=== PATIENT | male | born 1955 | race Caucasian/White ===

== ENCOUNTER 2016-07-12 11:49 | Emergency (ER) | payer MEDICARE, OTHER ==
[~2016-07-12] VITALS: Ht 177.8 cm; Wt 102.3 kg
[~2016-07-12 11:49] MED LIST: ALBUTEROL0.09 MG/A1 IH; ALLEGRA60 MG PO; ALOPHEN5 MG PO; AMBIEN 5MG TABLE5 MG PO; ARICEPT10 MG PO; ARICEPT5 MG PO; ASTELIN NASAL S34 ML; ASTELIN NASAL S34 ML NS; ASTELIN137 MCG/AC NS; AYR SALINE MIST50 ML NS; BUDEPRION XL PO; CALCIUM CITRAT200 MG PO; CELEXA 20MG20 MG/TAB PO; CEPHALEXIN500 M1 PO; CETIRIZINE PO; CHOLESTYRAMINE1 POW PO; CIPRO; CIPRO 500MG TA500 MG PO; CITALOPRAM10 MG PO; CITALOPRAM20 MG PO; COMBIVENT INH14.7 GM IH; CYANOCOBAL1000 MCG/1 IM; DESYREL 50MG50 MG PO; DOXYCYCLINE 10100 MG PO; FLONASE NASAL S16 GM; FLONASE0.05 MG/AC NS; FLOVENT DI50 MCG/Act IH; GABAPENTIN TAB600 MG PO; HARVONI; INDERAL LA 80MG80 MG PO; INDERAL80 MG PO; KETOROLAC10 MG PO; LAMICTAL PO; LAMICTAL200 MG PO; LAMOTRIGINE; LEVAQUIN 5500 MG/TAB PO; LEXAPRO20 MG PO; LIDODERM 5% PATC1 EA TP; LORTAB 5/500 501 TAB PO; MULTIPLE VITAMI1 TA4 PO; MVI PO; MYSOLINE PO; MYSOLINE250 MG PO; NAMENDA 10MG TA10 MG PO; NAMENDA10 MG PO; NAPROXEN 3375 MG/TAB PO; NEURONTIN600 MG/TAB PO; NEXIUM PO; NORCO 325 MG-51 TAB PO; NORCO 325 MG-7.1 TAB PO; NUTRAVESCENT1000 MG PO; OMEGA-31000 MG PO; PERCOCET 325 MG1 TA3 PO; PREDNISONE20 MG PO; PREVACID 30MG30 MG PO; PRIL40 PO; PRILOSEC 20MG20 MG; PRILOSEC 20MG20 MG PO; PRO AIR HFA IH; PROPRANOLOL60 MG PO; PROVENTIL0.09 MG/A1 IH; PROZAC40 MG PO; QUESTRAN4 GM/9 GM PO; SEREVENT IH; SEROQUEL200 MG PO; SONATA 10MG10 MG PO; SONATA5 MG PO; STOOL SOFTENER100 MG PO; TOPAMAX 100MG100 M1 PO; VENOFER; VENOFER20 MG/ML IV; VENTOLIN0.09 MG IH; VICODIN 5/5001 UDTAB PO; VITAMIN C BUFF500 MG PO; VITAMIN C500 MG PO; VITAMIN D; WELLBUTRIN 100100 MG PO; WELLBUTRIN PO; WELLBUTRIN XL300 MG PO; ZOFRAN4 M1 PO; [UNRECOGNIZED DRUG - OTHER]; [UNRECOGNIZED DRUG - OTHER] PO
[2016-07-12 11:55] VITALS: BP 116/70; PULSE 48; TEMP 98.6
== END 2016-07-12 12:38 | disposition home or self-care (01) ==
LOC: COL.ER 11:49
DX: S61.217A Laceration without foreign body of left little finger without damage to nail, initial encounter (principal); W27.8XXA Contact with other nonpowered hand tool, initial encounter; Y92.009 Unspecified place in unspecified non-institutional (private) residence as the place of occurrence of the external cause

== ENCOUNTER 2016-07-21 11:00 | Outpatient (RCR) | payer MEDICARE, OTHER ==
[2016-07-08 10:55] VITALS: BP 168/90; PULSE 55; TEMP 98.1
[2016-07-12 11:02] VITALS: BP 110/92; PULSE 79; TEMP 97.8
[2016-07-18 11:10] VITALS: BP 117/76; PULSE 56; TEMP 98.4
[~2016-07-21] VITALS: Ht 180.3 cm; Wt 102.3 kg
[2016-07-21 11:04] VITALS: BP 151/83; PULSE 55; TEMP 97.8
== END 2016-07-21 13:32 | disposition home or self-care (01) ==
LOC: EUO 11:00
DX: E61.1 Iron deficiency (principal)
CPT/HCPCS: J2916

== ENCOUNTER → 2017-07-04 | Outpatient (CLI) | payer MEDICARE, OTHER ==
[~2017-07-04] MED LIST changes: +BENTYL 10MG10 MG/CAP PO
== END ==
LOC: MHCPAIN 08:03
DX: G89.29 Other chronic pain (principal); M47.22 Other spondylosis with radiculopathy, cervical region; M54.81 Occipital neuralgia; Z87.891 Personal history of nicotine dependence
CPT/HCPCS: G0463

== ENCOUNTER → 2017-07-20 | Outpatient (CLI) | payer MEDICARE, OTHER | LOC: MHCPAIN 08:39 | DX: M50.31 Other cervical disc degeneration, high cervical region (principal) | CPT/HCPCS: J1100; J2250; J3010; Q9967 ==

== ENCOUNTER → 2017-08-01 | Outpatient (CLI) | payer MEDICARE, OTHER | LOC: MHCPAIN 09:22 | DX: G89.29 Other chronic pain (principal); M50.90 Cervical disc disorder, unspecified, unspecified cervical region; M54.12 Radiculopathy, cervical region; M54.81 Occipital neuralgia; R51 Headache | CPT/HCPCS: G0463 ==

== ENCOUNTER → 2017-10-04 | Outpatient (CLI) | payer MEDICARE | LOC: MHCPAIN 10:44 | DX: G89.29 Other chronic pain (principal); M50.90 Cervical disc disorder, unspecified, unspecified cervical region; M54.12 Radiculopathy, cervical region; M54.81 Occipital neuralgia; R51 Headache | CPT/HCPCS: G0463 ==

== ENCOUNTER → 2017-12-13 | Outpatient (CLI) | payer MEDICARE | LOC: MHCPAIN 07:57 | DX: G89.29 Other chronic pain (principal); M50.90 Cervical disc disorder, unspecified, unspecified cervical region; M54.12 Radiculopathy, cervical region; M54.81 Occipital neuralgia; R51 Headache | CPT/HCPCS: G0463 ==

== ENCOUNTER 2018-02-04 10:37 | Emergency (ER) | payer MEDICARE ==
[~2018-02-04] VITALS: Ht 177.8 cm; Wt 95.5 kg
[2018-02-04 10:40] VITALS: TEMP 98.4
[2018-02-04 11:13] LABS: COLLECTION METHOD CLEAN CATCH
[2018-02-04 11:16] LABS: BASO # 0.1 (0.0-0.2); BASO % 0.9 % (0.0-2.0); EOS # 0.1 (0.0-0.7); EOS % 1.3 % (0-4.0); GRAN # 4.7 (1.4-6.5); GRAN % 60.1 % (42.2-75.2); LYMPH # 2.3 (1.2-3.4); LYMPH % 29.8 % (20.0-51.0); MEAN CELL VOLUME 94 fl (80.0-100.0); MEAN CORPUSCULAR HEMOGLOBIN 31 pg (27.0-31.0); MEAN CORPUSCULAR HGB CONC 33 g/dl (33.0-37.0); MEAN PLATELET VOLUME 11.1 fl (7.4-10.4); MONO # 0.6 (0.1-0.6); MONO % 7.6 % (1.7-9.3); PLATELET COUNT 154 K/mm3 (130-400); RED BLOOD COUNT 4.79 M/mm3 (4.20-5.60)
[2018-02-04 11:20] LABS: MUCOUS Present /lpf; PH 6 (5-8); SQUAMOUS EPITHELIAL 0-2 /hpf; URINE APPEARANCE Clear; URINE BACTERIA None Seen /hpf; URINE BILIRUBIN Negative (NEGATIVE); URINE BLOOD Negative (NEGATIVE); URINE COLOR Yellow; URINE GLUCOSE Negative (NEGATIVE); URINE KETONE Negative (NEGATIVE); URINE LEUKOCYTE ESTERASE Negative (NEGATIVE); URINE NITRATE Negative (NEGATIVE); URINE PROTEIN(semi-quant) Negative (NEGATIVE); URINE RBC 0-2 /hpf; URINE UROBILINOGEN Negative (NEGATIVE)
[2018-02-04 11:22] LABS: INR 1.1 (0.8-3.0); PROTHROMBIN TIME 12.7 SECONDS (9.7-12.8)
[2018-02-04 11:27] LABS: ALANINE AMINOTRANSFERASE 41 U/L (21-72); ALBUMIN 4.1 gm/dL (3.5-5.0); ALKALINE PHOSPHATASE 56 U/L (50-136); ANION GAP 6 mmol/L (7-16); AST,SGOT 33 U/L (15-37); BILIRUBIN,TOTAL 0.5 mg/dL (0.0-1.0); BLOOD UREA NITROGEN 15 mg/dL (9-20); CALCIUM 8.9 mg/dL (8.4-10.2); CARBON DIOXIDE 23 mmol/L (22-30); CHLORIDE 115 mmol/L (98-107); CREATINE KINASE 63 U/L (55-170); CREATININE, serum 1.25 mg/dL (0.66-1.25); GLUCOSE 84 mg/dL (74-106); POTASSIUM 3.6 mmol/L (3.4-5.0); SODIUM 144 mmol/L (137-145)
[2018-02-04 11:40] LABS: TROPONIN-I < 0.012 ng/mL (0.000-0.034)
[2018-02-04 14:02] VITALS: BP 162/80; PULSE 70
== END 2018-02-04 14:04 | disposition home or self-care (01) ==
LOC: COL.ER 10:37
PROVIDERS: Emergency Medicine
DX: R60.9 Edema, unspecified (principal); Z88.2 Allergy status to sulfonamides; Z98.84 Bariatric surgery status; Z90.49 Acquired absence of other specified parts of digestive tract
CPT/HCPCS: J7030

== ENCOUNTER → 2018-03-07 | Outpatient (CLI) | payer MEDICARE | LOC: MHCPAIN 08:49 | DX: G89.29 Other chronic pain (principal); M54.81 Occipital neuralgia; R51 Headache; M47.812 Spondylosis without myelopathy or radiculopathy, cervical region | CPT/HCPCS: G0463 ==

== ENCOUNTER 2018-07-15 13:17 | Observation (INO) | payer MEDICARE ==
[~2018-07-15] VITALS: Ht 177.8 cm; Wt 99.3 kg
[~2018-07-15 13:17] MED LIST changes: +LAMICTAL150 MG PO
[2018-07-15 13:45] LABS: COLLECTION METHOD CLEAN CATCH
[2018-07-15 13:49] LABS: BASO # 0.1 (0.0-0.2); BASO % 1.1 % (0.0-2.0); EOS # 0.1 (0.0-0.7); EOS % 2.2 % (0-4.0); GRAN # 3.7 (1.4-6.5); GRAN % 58.3 % (42.2-75.2); HEMATOCRIT 44.8 % (42.0-52.0); HEMOGLOBIN 14.6 g/dl (13.5-18.0); LYMPH # 1.9 (1.2-3.4); MEAN CELL VOLUME 98 fl (80.0-100.0); MEAN CORPUSCULAR HEMOGLOBIN 32 pg (27.0-31.0); MEAN CORPUSCULAR HGB CONC 33 g/dl (33.0-37.0); MEAN PLATELET VOLUME 10.7 fl (7.4-10.4); MONO # 0.5 (0.1-0.6); MONO % 8.1 % (1.7-9.3); PLATELET COUNT 140 K/mm3 (130-400); RED BLOOD COUNT 4.57 M/mm3 (4.20-5.60); REDCELL DISTRIBUTION WIDTH-CV 12.5 % (11.5-14.5)
[2018-07-15 13:53] LABS: PH 6 (5-8); SQUAMOUS EPITHELIAL None Seen /hpf; URINE APPEARANCE Clear; URINE BACTERIA None Seen /hpf; URINE BILIRUBIN Negative (NEGATIVE); URINE BLOOD Negative (NEGATIVE); URINE COLOR Straw; URINE GLUCOSE Negative (NEGATIVE); URINE KETONE Negative (NEGATIVE); URINE LEUKOCYTE ESTERASE Negative (NEGATIVE); URINE NITRATE Negative (NEGATIVE); URINE PROTEIN(semi-quant) Negative (NEGATIVE); URINE RBC 0-2 /hpf; URINE UROBILINOGEN Negative (NEGATIVE)
[2018-07-15 13:59] LABS: ALANINE AMINOTRANSFERASE 16 U/L (21-72); ALBUMIN 3.8 gm/dL (3.5-5.0); ALKALINE PHOSPHATASE 46 U/L (50-136); ANION GAP 9 mmol/L (7-16); AST,SGOT 24 U/L (15-37); BILIRUBIN,TOTAL 0.4 mg/dL (0.0-1.0); BLOOD UREA NITROGEN 8 mg/dL (9-20); CARBON DIOXIDE 31 mmol/L (22-30); CHLORIDE 104 mmol/L (98-107); GLUCOSE 93 mg/dL (74-106); MAGNESIUM 2.1 mg/dL (1.6-2.3); PHOSPHOROUS 3.5 mg/dL (2.5-4.5); POTASSIUM 3.9 mmol/L (3.4-5.0); SODIUM 144 mmol/L (137-145); TOTAL PROTEIN 6.7 gm/dL (6.4-8.2)
[2018-07-15 14:16] LABS: TROPONIN-I < 0.012 ng/mL (0.000-0.035)
[2018-07-15 18:08] VITALS: BP 134/76; PULSE 64; TEMP 97.8
[2018-07-15 19:59] VITALS: BP 142/71; PULSE 68; TEMP 97.6
[2018-07-15] MEDS ORDERED: NORCO 325 MG-51 TAB PO (20:06)
[2018-07-15] MEDS ORDERED: MOBIC 7.5MG7.5 MG PO (20:12)
[2018-07-15] MEDS ORDERED: NEURONTIN100 MG/CAP PO (20:12)
[2018-07-16] VITALS (7 sets, daily range): BP systolic 125–144; BP diastolic 65–85; PULSE 50–78; TEMP 97.7–98.2
--- NOTE | 2018-07-16 01:46 | NUR ---
Patient assessed around 2100. Reported pain to back, rated as an 8. Med rec completed with patient, and called MD to see if patient could get pain medication on board. MD ordered medications, did not want to give [place] due to patient's confusion earlier. Given Mobic and Gabapentin per orders. Patient has not had any furhter complaints of pain or discomfort. Patient has been having bradycardia, with heart rate dropping in the 40s. EKG completed per orders, showing sinus bradycardia. Alert and oriented x 4, and able to make needs known. LS CTA. Respirations even and unlabored. HRR. BSAx4. Resting in bed with eyes closed at this time. Call light is within reach.
--- NOTE | 2018-07-16 05:11 | NUR ---
Patient has not had any complaints of pain or discomfort since given scheduled medication around 2100. NS continues at 75 ml/hr to IV site in left hand. Site is without redness, warmth, swelling, and pain. Notified that he will get MRI and EEG, and voiced understanding. Patient has been in sinus bradycardia. HR had been dropping in the upper 40s. EKG was received per orders. Dr. Quintero changed HR parameters to call if less than 45. Resting in bed with eyes closed at this time. Call light is within reach.
--- NOTE | 2018-07-16 08:47 | NUR ---
Pt is awake and A/Ox4, sitting up in recliner. He states he is having 6/10 back pain which is chronic. He states a 6/10 is "normal" for him. IVF are infusing into left hand without difficulty. He is up as tolerated in room. Pt denies any other needs at this time. Will monitor.
--- NOTE | 2018-07-16 10:00 | NUR ---
Pt refused PRN ativan prior to MRI. He states he has had several MRI and CT scans and does not have any issues with claustrophobia.
--- NOTE | 2018-07-16 12:23 | NUR ---
Initial visit; Patient thanked [employer] for looking in on him and offering prayer and God's blessings.
--- NOTE | 2018-07-16 16:03 | NUR ---
Tele called regarding HR dropping below 50, ANABELLE Diego notified. She states she will pass along info to Dr. Grissom.
--- NOTE | 2018-07-16 16:04 | NUR ---
Pt reports 8/10 neck/back pain. Pt requested PRN norco for this and it was given.
--- NOTE | 2018-07-16 21:15 | NUR ---
Shift assessment complete. Patient in bed, awake. States, pain 5/10 in neck, chronic. Prn pain medication not due until 2244, pt ok with waiting. Will call if changes his mind. Prn medication given for sleep. Denies further needs at this time. Will continue to monitor.
[2018-07-17 03:30] VITALS: BP 123/71; PULSE 56; TEMP 98.1
--- NOTE | 2018-07-17 06:08 | NUR ---
Patient ambulating in room, steady. States, 4/10 chronic neck pain. Prn pain medication given, will continue to assess. Denies further needs.
--- NOTE | 2018-07-17 08:08 | NUR ---
Assessment completed, alert/oriented, vital signs stable, denies any concerns or events overnight, NO new neuro deficits noted, he does have tremors but these are baseline for him, reports visual changes have resolved, heart RRR, lungs CTA, MRI braing was negative from yesterday, labs pending from this mroning, patient denies other needs and is eating breakfast at [facility], hoping to be discharged home today
[2018-07-17 08:16] VITALS: BP 137/63; PULSE 66; TEMP 98.2
[2018-07-17 08:36] LABS: CHOLESTEROL RISK RATIO 4.4; CREATININE, serum 1.3 (0.66-1.25)
[2018-07-17] MEDS ORDERED: ASPIRIN 81M81 MG/TA2 PO (10:37)
[2018-07-17] MEDS ORDERED: PRINIVIL20 MG PO (10:39)
[2018-07-17] MEDS ORDERED: LIPITOR20 MG PO (10:58)
--- NOTE | 2018-07-17 12:09 | NUR ---
Discharge orders reviewed with the patient, instructed to have follow up labs in a week and to Follow up with PCP as we have scheduled, discussed new meds and med changes, scripts sent to [facility] pharmacy for him, instructed to drinkin plent of water and to eat a AHA diet, removed IV and tele, patient is ambulatory and leaving via [employer], I personally escorted him out the door
== END 2018-07-17 12:12 | disposition home or self-care (01) ==
LOC: COL.ER 13:17 → MEDICAL 15:31
PROVIDERS: Emergency Medicine; Physician Assistant; ADMIT Hospitalist
DX: G45.9 Transient cerebral ischemic attack, unspecified (principal); H53.8 Other visual disturbances; F32.9 Major depressive disorder, single episode, unspecified; K21.9 Gastro-esophageal reflux disease without esophagitis; I10 Essential (primary) hypertension; G25.0 Essential tremor; G89.29 Other chronic pain; Z90.49 Acquired absence of other specified parts of digestive tract; Z87.891 Personal history of nicotine dependence; Z88.2 Allergy status to sulfonamides; Z88.1 Allergy status to other antibiotic agents; M19.90 Unspecified osteoarthritis, unspecified site; Z79.82 Long term (current) use of aspirin
CPT/HCPCS: A9585; G0378; J0360; J1644; J2060; J7030

== ENCOUNTER 2020-02-08 10:06 | Emergency (ER) | payer MEDICARE ==
[~2020-02-08] VITALS: Ht 177.8 cm; Wt 111.4 kg
[~2020-02-08 10:06] MED LIST changes: +ASPIRIN 81M81 MG/TA2 PO; +LIPITOR20 MG PO; +MOBIC 7.5MG7.5 MG PO; +NEURONTIN100 MG/CAP PO; +PRINIVIL20 MG PO
[2020-02-08 10:12] VITALS: TEMP 97.1
[2020-02-08 11:00] VITALS: BP 120/74; PULSE 71
== END 2020-02-08 11:03 | disposition home or self-care (01) ==
LOC: COL.ER 10:06
DX: S81.811A Laceration without foreign body, right lower leg, initial encounter (principal); Z87.891 Personal history of nicotine dependence; Z23 Encounter for immunization; Z88.2 Allergy status to sulfonamides; Z79.82 Long term (current) use of aspirin; W25.XXXA Contact with sharp glass, initial encounter

== ENCOUNTER → 2020-02-19 | Outpatient (CLI) | payer MEDICARE ==
[2020-02-19 10:31] VITALS: BP 136/81; PULSE 65; TEMP 96.7
== END ==
LOC: COL.ER 10:13
DX: Z48.02 Encounter for removal of sutures (principal)

== ENCOUNTER → 2020-05-04 | Outpatient (CLI) | payer MEDICARE ==
[~2020-05-04] MED LIST changes: +OMNICEF 300MG300 MG PO
== END ==
LOC: COL.RAD
DX: M48.02 Spinal stenosis, cervical region (principal); M47.812 Spondylosis without myelopathy or radiculopathy, cervical region

== ENCOUNTER 2020-06-22 02:01 | Emergency (ER) | payer MEDICARE ==
[~2020-06-22] VITALS: Ht 177.8 cm; Wt 109.1 kg
[~2020-06-22 02:01] MED LIST changes: -OMNICEF 300MG300 MG PO
[2020-06-22 02:10] VITALS: TEMP 98
[2020-06-22 02:14] LABS: COLLECTION METHOD CLEAN CATCH
[2020-06-22 02:20] LABS: PH 5 (5-8); SQUAMOUS EPITHELIAL 0-2 /hpf; URINE APPEARANCE Clear; URINE BACTERIA None Seen /hpf; URINE BILIRUBIN Negative (NEGATIVE); URINE BLOOD Negative (NEGATIVE); URINE COLOR Yellow; URINE GLUCOSE Negative (NEGATIVE); URINE KETONE Trace (NEGATIVE); URINE LEUKOCYTE ESTERASE Negative (NEGATIVE); URINE NITRATE Negative (NEGATIVE); URINE PROTEIN(semi-quant) Negative (NEGATIVE); URINE RBC 0-2 /hpf; URINE UROBILINOGEN Negative (NEGATIVE)
[2020-06-22] MEDS ORDERED: CIPRO 500MG TA500 MG PO (02:45)
[2020-06-22 03:02] VITALS: BP 137/82; PULSE 67
== END 2020-06-22 03:02 | disposition home or self-care (01) ==
LOC: COL.ER 02:01
PROVIDERS: Family Medicine
DX: R30.0 Dysuria (principal); I10 Essential (primary) hypertension; K21.9 Gastro-esophageal reflux disease without esophagitis; F31.9 Bipolar disorder, unspecified; Z88.2 Allergy status to sulfonamides; Z88.8 Allergy status to other drugs, medicaments and biological substances; Z79.899 Other long term (current) drug therapy; Z79.82 Long term (current) use of aspirin

== ENCOUNTER → 2020-07-03 | Outpatient (CLI) | payer MEDICARE ==
[~2020-07-03] MED LIST changes: +OMNICEF 300MG300 MG PO
== END ==
LOC: COL.RAD 09:39
DX: Z13.6 Encounter for screening for cardiovascular disorders (principal); F17.201 Nicotine dependence, unspecified, in remission

== ENCOUNTER 2020-08-12 11:45 | Emergency (ER) | payer MEDICARE ==
[~2020-08-12] VITALS: Wt 110.0 kg
[~2020-08-12 11:45] MED LIST changes: -OMNICEF 300MG300 MG PO
[2020-08-12 11:56] VITALS: TEMP 99.2
[2020-08-12 12:51] LABS: COLLECTION METHOD CLEAN CATCH
[2020-08-12 12:57] LABS: PH 6 (5-8); SQUAMOUS EPITHELIAL None Seen /hpf; URINE APPEARANCE Clear; URINE BACTERIA Rare /hpf; URINE BILIRUBIN Negative (NEGATIVE); URINE BLOOD Negative (NEGATIVE); URINE COLOR Amber; URINE GLUCOSE Negative (NEGATIVE); URINE KETONE Negative (NEGATIVE); URINE LEUKOCYTE ESTERASE Negative (NEGATIVE); URINE NITRATE Positive (NEGATIVE); URINE PROTEIN(semi-quant) Negative (NEGATIVE); URINE RBC 0-2 /hpf; URINE UROBILINOGEN >=4.0 mg/dL (NEGATIVE)
[2020-08-12] MEDS ORDERED: OMNICEF 300MG300 MG PO (13:28)
[2020-08-12 14:03] VITALS: BP 173/96; PULSE 88
== END 2020-08-12 14:15 | disposition home or self-care (01) ==
LOC: COL.ER 11:45
PROVIDERS: Family Medicine
DX: R30.0 Dysuria (principal); R33.9 Retention of urine, unspecified; F31.9 Bipolar disorder, unspecified; K21.9 Gastro-esophageal reflux disease without esophagitis; I10 Essential (primary) hypertension; Z79.899 Other long term (current) drug therapy

== ENCOUNTER 2021-11-02 07:50 | Day surgery (SDC) | payer MEDICARE ==
[~2021-11-02] VITALS: Ht 182.9 cm; Wt 104.0 kg
[~2021-11-02 07:50] MED LIST changes: +OMNICEF 300MG300 MG PO
[2021-11-02 08:48] VITALS: BP 161/93; PULSE 69; TEMP 97.6
[2021-11-02] MEDS ORDERED: MOBIC15 MG PO (08:54)
[2021-11-02] MEDS ORDERED: FLOMAX 0.40.4 MG/CAP PO (08:54)
[2021-11-02] MEDS ORDERED: DEPO-TESTOS200 MG/M1 IM (08:55)
[2021-11-02] MEDS ORDERED: PRILOSEC 20MG20 MG PO (09:40)
[2021-11-02 09:50] VITALS: BP 154/86; PULSE 69; TEMP 97.2
[2021-11-02 10:05] VITALS: BP 154/97; PULSE 74
[2021-11-02 10:20] VITALS: BP 163/81; PULSE 65
== END 2021-11-02 10:45 | disposition home or self-care (01) ==
LOC: SDCO 07:50
PROVIDERS: Internal Medicine Gastroenterology
DX: K21.9 Gastro-esophageal reflux disease without esophagitis (principal); K22.70 Barrett's esophagus without dysplasia; Z98.84 Bariatric surgery status; G47.33 Obstructive sleep apnea (adult) (pediatric); Z87.891 Personal history of nicotine dependence
CPT/HCPCS: J2704; J7030

== ENCOUNTER 2022-05-25 11:00 | Outpatient (RCR) | payer MEDICARE ==
[2022-05-18 08:42] VITALS: BP 138/79; PULSE 79; TEMP 98.3
[~2022-05-25] VITALS: Ht 182.9 cm; Wt 96.2 kg
[~2022-05-25 11:00] MED LIST changes: +DEPO-TESTOS200 MG/M1 IM; +FASTIN30 MG PO; +FLOMAX 0.40.4 MG/CAP PO; +MOBIC15 MG PO
[2022-05-25 11:07] VITALS: BP 149/87; PULSE 82; TEMP 98.2
--- NOTE | 2022-05-25 11:42 | NUR ---
INFUSION FINISHED. PT STATES NO ISSUE WITH 1ST TRANSFUSION. IV DC'D.
== END 2022-05-27 15:07 ==
LOC: EUO 11:00
DX: D50.8 Other iron deficiency anemias (principal)
CPT/HCPCS: J1756

== ENCOUNTER 2022-06-01 10:07 | Outpatient (RCR) | payer MEDICARE ==
[~2022-06-01] VITALS: Ht 182.9 cm; Wt 96.2 kg
[2022-06-01 10:16] VITALS: BP 194/105; PULSE 83; TEMP 97.9
== END 2022-06-01 11:10 | disposition home or self-care (01) ==
LOC: EUO 10:07
DX: D50.8 Other iron deficiency anemias (principal)
CPT/HCPCS: J1756